=== PATIENT | female | born 1950 | race Caucasian/White ===

== ENCOUNTER → 2023-06-23 10:24 | Outpatient (REF) | payer OTHER, SELFPAY | LOC: HWWDC 10:24 | PROVIDERS: ATTENDING PHYSICIAN Internal Medicine | DX: Z12.31 Encounter for screening mammogram for malignant neoplasm of breast (principal) | CPT/HCPCS: 77063; 77067 ==

== ENCOUNTER 2024-05-04 09:42 | Emergency (ER) | payer OTHER, SELFPAY ==
[2024-05-04 09:55] VITALS: BP 141/84
--- NOTE | 2024-05-04 10:34 | ED.GENMED ---
History of Present Illness
<MELODY Barrera Last Filed: 05/08/24 07:01>
General
Chief Complaint: Skin Problem
Source: patient
Exam Limitations: none
Time Seen by Provider: 05/04/24 10:27
History of Present Illness
History of Present Illness:
74-year-old female nonspinning diabetic with history of hypertension hyperlipidemia presents with painless bruising to the left middle toe. She does not recall injuring it. She does have neuropathy to her foot. This started 5 days ago and
progressed since then. She denies discoloration to the end of her foot as well. No fevers chills nausea vomiting chest pain or shortness of breath. No other complaints at this time
Past History
<MELODY Barrera Last Filed: 05/08/24 07:01>
Past History
ED Past Medical History: None
ED Past Surgical History: None
Social History
Personal:
Living: with family
Phy Exam
<MELODY Barrera Last Filed: 05/08/24 07:01>
Physical Exam
Physical Exam:
General: Well-appearing female no acute respiratory distress
HEENT: Normocephalic atraumatic
Extremity: Left middle toe ecchymotic there is what appears to be an abrasion at the base of the nail dorsally there is some tenderness to touch over the proximal middle phalanx of the toe. The toe has brisk capillary refill is warm to the touch
and has good sensation
Course
<MELODY Barrera Last Filed: 05/08/24 07:01>
Orders/Labs/Results
Orders:
Orders
05/04/24 10:34
CR Foot - Left Min 3 Views Urgent
Comment:
Reason For Exam: middle toe discoloration
Vital Signs
Initial and Last Documented VS:
Initial Vital Signs
Temp Pulse Resp BP Pulse Ox
98.3 F 77 16 141/84 97
05/04/24 09:55 05/04/24 09:55 05/04/24 09:55 05/04/24 09:55 05/04/24 09:55
Last Documented Vital Signs
Temp Pulse Resp BP Pulse Ox
98.3 F 76 18 124/65 97
05/04/24 09:55 05/04/24 12:11 05/04/24 12:11 05/04/24 12:11 05/04/24 09:55
<Bishop Sinha DO - Last Filed: 05/04/24 12:10>
Orders/Labs/Results
Orders:
Orders
05/04/24 10:34
CR Foot - Left Min 3 Views Urgent
Comment:
Reason For Exam: middle toe discoloration
Vital Signs
Initial and Last Documented VS:
Initial Vital Signs
Temp Pulse Resp BP Pulse Ox
98.3 F 77 16 141/84 97
05/04/24 09:55 05/04/24 09:55 05/04/24 09:55 05/04/24 09:55 05/04/24 09:55
Last Documented Vital Signs
Temp Pulse Resp BP Pulse Ox
98.3 F 76 18 124/65 97
05/04/24 09:55 05/04/24 12:11 05/04/24 12:11 05/04/24 12:11 05/04/24 09:55
<Bao Tijerina PA-C - Last Filed: 05/08/24 07:01>
MDM/Problems Addressed
Differential Diagnosis Includes:
Left third toe discoloration question contusion ecchymosis. There is no overlying erythema there is no lymphangitic streaking. Do not suspect infectious source however would be on differential for diabetic patient with neuropathy. Also consider
fracture. Will order x-ray.
<Bao Tijerina PA-C - Last Filed: 05/08/24 07:01>
*Critical Care Note
Total Time (30-74mins, 75-104mins- exclusive of procedures): Not Applicable
ED Attending Note
<Bao Tijerina PA-C - Last Filed: 05/08/24 07:01>
-
Portions of this chart may have been created with voice recognition software.� Occasional wrong word or��sound alike� substitutions may have occurred due to the inherent limitations of voice recognition software.
<Bishop Sinha, - Last Filed: 05/04/24 12:10>
ED Attending Note
Patient seen and examined by attending physician: Yes
ED Attending Note:
I have reviewed and agree with history treatment plan by Naga Tijerina. My exam revealed 74-year-old female with contusion of the left third toe. Mild skin break around nailbed. Dorsalis pedis and posterior tibialis pulses 4+. Do not suspect
clot or vascular insufficiency. Will treat prophylactically with Keflex due to diabetes. Follow-up with podiatry.
Discharge Plan
Departure
Patient Disposition: Home (Routine Discharge)
Date of Disposition: 05/04/24
Time of Disposition: 12:06
Patient with high blood pressure during this ER visit?: Yes
Condition: Good
Discharge Problem:
Contusion of third toe of left foot
Instructions: Wound Care (DC), BLOOD PRESSURE
Prescriptions:
New
cephalexin 500 mg capsule
500 mg PO QID 7 Days Qty: 28 0RF
No Action
metformin 500 MG tablet
500 mg PO .DAILYPM
metoprolol succinate 100 MG tablet extended release 24 hr
100 mg PO DAILY
venlafaxine [Effexor XR] 150 MG capsule,extended release 24hr
150 mg PO DAILY
simvastatin 20 MG tablet
20 mg PO QPM
metformin 1,000 MG tablet
1,000 mg PO .DAILYAM
hydrocodone-acetaminophen 1 TABLET tablet
1 tab PO Q4HPRN PRN (Reason: severe pain) Qty: 20 0RF
Referrals:
Jules Jarrell DPM [Specified Professional Personl] - Call in 1-3 days for appt
Louie Harris MD [Family Provider] -
Interventions
Interventions:
*Risk Screen - Suicide Last Done: 05/04/24 09:55
*General Assessment Last Done: 05/04/24 09:55
*Neglect/Abuse Screening Last Done: 05/04/24 09:55
*ED COVID-19 Vaccine History Last Done: 05/04/24 09:55
*Nursing Disposition Last Done: 05/04/24 12:12
ED-Skin Assessment Last Done: 05/04/24 10:14
Discharge Date and Time
Discharge Date/Time: 05/04/24 12:13
Print Language: BELARUSIAN
[2024-05-04 12:11] VITALS: BP 124/65
== END 2024-05-04 12:13 | disposition home or self-care (01) ==
LOC: EMR 09:42
PROVIDERS: EMERGENCY PHYSICIAN Emergency Medicine; FAMILY PHYSICIAN Internal Medicine
DX: S90.122A Contusion of left lesser toe(s) without damage to nail, initial encounter (principal); X58.XXXA Exposure to other specified factors, initial encounter; I10 Essential (primary) hypertension; E78.5 Hyperlipidemia, unspecified; E11.40 Type 2 diabetes mellitus with diabetic neuropathy, unspecified
CPT/HCPCS: 99283; 73630

== ENCOUNTER → 2024-06-28 10:21 | Outpatient (REF) | payer OTHER, SELFPAY | LOC: HWWDC 10:21 | PROVIDERS: ATTENDING PHYSICIAN Internal Medicine | DX: Z12.31 Encounter for screening mammogram for malignant neoplasm of breast (principal) | CPT/HCPCS: 77063; 77067 ==